=== PATIENT | male | born 1985 | race African-American/Black ===

== ENCOUNTER 2021-08-10 16:41 | Emergency (ER) | payer OTHER ==
[~2021-08-10] VITALS: Ht 172.7 cm; Wt 85.0 kg
[2021-08-10] MEDS ORDERED: MORPHINE SULFATE 4 MG/ML CPJ (NOT FOR IM USE) IV STA (18:15)
[2021-08-10] MEDS ORDERED: CEFTRIAXONE 2 G PREMIX 50 ML IV ONE (18:15)
[2021-08-10 19:24] LABS: BASOPHILS % 0.6 % (0.0-2.0); EOSINOPHILS % 1.5 % (0.0-5.0); HEMATOCRIT. 43.2 % (42.0-52.0); HEMOGLOBIN. 14.7 g/dL (14.0-18.0); LYMPHOCYTES % 27.6 % (20.0-50.0); MEAN CORPUSCULAR HEMOGLOBIN 30.6 pg (28.0-32.0); MEAN PLATELET VOLUME 8.1 fl (7.4-10.4); MONOCYTES % 13.1 % (2.0-8.0); NEUTROPHILS % 57.2 % (40.0-76.0); PLATELET 196 x1000/uL (130-400); RED CELL DISTRIBUTION WIDTH 14.6 % (11.6-14.6)
[2021-08-10 19:28] LABS: CHLORIDE 107 mEq/L (98-107)
[2021-08-10] MEDS ORDERED: ONDANSETRON HCL 4MG/2ML INJ IV ONE (19:30)
[2021-08-10 22:00] VITALS: BP 129/71
== END 2021-08-10 22:51 | disposition short-term general hospital (02) ==
LOC: ER 16:41 → CANBEDREQ 23:28
DX: L03.113 Cellulitis of right upper limb (principal)
CPT/HCPCS: 36415; 73060; 80053; 85025; 96365; 96375; 99285; A4217; J0696; J2270; J2405; Z7610